=== PATIENT | male | born 2000 | race Caucasian/White ===

== ENCOUNTER 2018-07-16 00:03 | Emergency (ER) | payer SELFPAY ==
[~2018-07-16] VITALS: Ht 182.9 cm; Wt 93.0 kg
[2018-07-16 00:03] VITALS: BP_SYST 127
--- NOTE | 2018-07-16 00:03 | NUR ---
Pt placed to ER bed 07, report given to DESI Hu.
--- NOTE | 2018-07-16 00:10 | NUR ---
Pt came into ER ambulatory and AAO. Pt c/o of pain 10/17, from BUE lacerations obtained after a sliding door glass shattered on him. Pt states he doesnt remeber when he had a TDAP shot last. Pt denies any other pertinent Hx. Will continue to monitor.
--- NOTE | 2018-07-16 00:16 | NUR ---
Dr. Mancini at bedside examining Pt.
--- NOTE | 2018-07-16 00:40 | NUR ---
X-ray at bedside.
[2018-07-16] MEDS ORDERED: DIPH-TET-PERTUS Vaccine 0.5 ML VIAL (ADACEL) I.M. ONE (00:45)
[2018-07-16] MEDS ORDERED: LIDOCAINE 1%, 20 ML MDV 20 ML ONE (01:26)
[2018-07-16 01:44] VITALS: BP_SYST 125
--- NOTE | 2018-07-16 01:44 | NUR ---
Patient given written and verbal discharge instructions and verbalizes understanding. ER MD discussed with patient the results and treatment provided. Patient in stable condition. ID arm band removed. Rx of Ibuprofen and Keflex given. Patient educated on pain management and to follow up with PMD. Pain Scale 0/10. Opportunity for questions provided and answered. Medication side effect fact sheet provided.
== END 2018-07-16 01:44 | disposition home or self-care (01) ==
LOC: SED 00:03 → EDSEX 00:03 → SED 01:44
DX: S51.821A Laceration with foreign body of right forearm, initial encounter (principal); S51.812A Laceration without foreign body of left forearm, initial encounter; R03.0 Elevated blood-pressure reading, without diagnosis of hypertension; W25.XXXA Contact with sharp glass, initial encounter; Y93.89 Activity, other specified; Y92.89 Other specified places as the place of occurrence of the external cause; Y99.8 Other external cause status
CPT/HCPCS: 12031; 73090; 90471; 90715; 99284; J2001